=== PATIENT | female | born 1990 | race African-American/Black ===

== ENCOUNTER 2016-10-06 12:37 | Emergency (ER) | payer OTHER ==
[~2016-10-06] VITALS: Ht 165.1 cm; Wt 113.4 kg
[~2016-10-06 12:37] MED LIST: NAPR500T PO; OXYC-323 PO; no home meds
[2016-10-06 13:30] LABS: BILIRUBIN,URINE NEGATIVE (NEG); GLUCOSE,URINE NEGATIVE (NEG); NITRITE,URINE NEGATIVE (NEG); PH,URINE 6.5; PROTEIN,URINE NEGATIVE (NEG-TRACE); UROBILINOGEN,URINE 0.2 mg/dL (0.2 mg/dL)
[2016-10-06] MEDS ORDERED: ACETAMINOPHEN 500 MG TABLET PO ONE (13:30)
[2016-10-06 13:48] LABS: BACTERIA,URINE 0 /HPF (0-FEW); RBC,URINE >40 /HPF (0-2); SQUAMOUS EPITHELIAL CELL,UR FEW /LPF; WBC,URINE 0 /HPF (0-4)
[2016-10-06 13:54] LABS: BASO % 1 % (0-3); EOS % 2 % (0-3); HEMATOCRIT 39.6 % (36.0-47.0); HEMOGLOBIN 12.5 g/dL (12.0-15.5); LYMPH # 3.3 x10^3/uL (1.0-4.8); LYMPH % 32 % (24-48); MEAN CORPUSCULAR HEMOGLOBIN 24 pg (25-35); MEAN CORPUSCULAR HGB CONC 32 g/dL (31-37); MEAN CORPUSCULAR VOLUME 77 fL (79-100); MONO % 7 % (0-9); NEUT % 59 % (31-73); PLATELET COUNT 294 x10^3/uL (140-400); RED BLOOD COUNT 5.17 x10^6/uL (3.50-5.40); RED CELL DISTRIBUTION WIDTH 15.3 % (11.5-14.5); WHITE BLOOD COUNT 10.5 x10^3/uL (4.0-11.0)
[2016-10-06 13:58] LABS: CALCIUM 8.8 mg/dL (8.5-10.1); CREATININE 0.8 mg/dL (0.6-1.0); GFR 105.8; POTASSIUM 3.8 mmol/L (3.5-5.1)
--- NOTE | 2016-10-06 15:37 | RAD ---
Early OB ultrasound History: Vaginal bleeding. Technique: Real-time grayscale sonographic images of the gravid uterus were performed transabdominally and transvaginally. Transabdominal imaging was performed to evaluate optimally the uterine fundus. Endovaginal imaging was performed to evaluate optimally the endometrial canal and to increase sensitivity for detection of intrauterine . Comparison: None. Findings: Transabdominal imaging: Uterus measures 9.5 cm in length. No intrauterine is identified. Ovaries are not seen. No adnexal masses are identified. Endovaginal imaging: No intrauterine is identified. Endometrial thickness is 8 mm. Right ovary measures 3.5 x 2.3 x 1.7 cm. Left ovary measures 1.5 x 3.1 x 2.4 cm. Both ovaries demonstrate normal vascular flow upon Doppler interrogation and are without evidence of torsion. No adnexal masses are seen. No free hemorrhage is seen in the pelvis. Impression: 1. No intrauterine is identified. No adnexal masses are seen. Statistically, most likely etiology is a very early intrauterine . As no definitive intrauterine is identified, ectopic cannot be entirely excluded. Serial beta-hCG levels and pelvic ultrasound could be performed as clinically indicated.
[2016-10-06 15:45] VITALS: BP 125/69
[2016-10-06] MEDS ORDERED: METR500T PO (16:05)
[2016-10-06] MEDS ORDERED: HYDR-971 PO (16:05)
--- NOTE | 2016-10-06 16:05 | PHYS DOC ---
Past Medical History Past Medical History: Other Additional Past Medical Histor: Gestational DM, morbid obesity, eczema, Past Surgical History: Additional Information: 1 black and mild cigar occasionally Alcohol Use: None Drug Use: None Adult General Chief Complaint Chief Complaint: VAGINAL BLEEDING HPI HPI Patient is a 26 year old female who presents with vaginal bleeding in . She is at 6w2d by dates, LMP 08/24. The patient states she had onset of bleeding last evening, just spotting at that time, this morning woke up "sitting in a puddle of blood." Has not used any feminine pads. She reports cramping lower abdominal pain. Denies fevers/chills, nausea/ vomiting, dysuria, vaginal discharge. Reports she has been seen in the OB clinic by Dr. Mills, had US showing IUP last week. Review of Systems Review of Systems Constitutional: Denies fever or chills HENT: Denies nasal congestion or sore throat Respiratory: Denies cough or shortness of breath Cardiovascular: Denies chest pain or edema GI: Reports abdominal pain, denies nausea, vomiting, or diarrhea : Denies dysuria or hematuria, reports vaginal bleeding. Musculoskeletal: Denies back pain or joint pain Integument: Denies rash or skin lesions Neurologic: Denies headache Current Medications Current Medications Current Medications Medications (Trade) Dose Ordered Sig/Roc Start Time Stop Time Status Last Admin Dose Admin Acetaminophen (Tylenol) 500 mg 1X ONCE 10/06/16 13:30 10/06/16 13:31 DC 10/06/16 13:36 500 MG Allergies Allergies Allergies Coded Allergies Type Severity Reaction Last Updated Verified No Known Allergies Allergy Unknown 09/09/15 Yes Physical Exam Physical Exam Constitutional: Obese, no acute distress, non-toxic appearance. HENT: Normocephalic, atraumatic, bilateral external ears normal, oropharynx moist, nose normal. Eyes: conjunctiva normal, no discharge. Neck: supple, no stridor. Cardiovascular: RRR, no murmurs, no edema. Lungs & Thorax: LCTAB, no wheezing, no respiratory distress. Abdomen: soft, generalized lower abdominal pain without rebound or guarding, nondistended. : normal appearing female external genitalia, normal appearing cervix with closed os, no CMT/adnexal tenderness Skin: Warm, dry, no erythema, no rash. Back: No CVA tenderness. Extremities: No tenderness, no edema. Neurologic: Alert and oriented X 3 Current Patient Data Vital Signs Vital Signs Date Time Temp Pulse Resp B/P Pulse Ox O2 Delivery O2 Flow Rate FiO2 10/06/16 15:45 87 18 125/69 99 Room Air 10/06/16 12:53 99.0 99.0 Lab Values Laboratory Tests Test 10/06/16 13:03 10/06/16 13:35 Urine Collection Type Unknown Urine Color Yellow Urine Clarity Clear Urine pH 6.5 Urine Specific Brooks 1.025 Urine Protein Negativemg/dL (NEG-TRACE) Urine Glucose (UA) Negativemg/dL (NEG) Urine Ketones (Stick) Negativemg/dL (NEG) Urine Blood Large (NEG) Urine Nitrite Negative (NEG) Urine Bilirubin Negative (NEG) Urine Urobilinogen Dipstick 0.2mg/dL (0.2 mg/dL) Urine Leukocyte Esterase Trace (NEG) Urine RBC >40/HPF (0-2) Urine WBC 0/HPF (0-4) Urine Squamous Epithelial Cells Few/LPF Urine Bacteria 0/HPF (0-FEW) Urine Mucus Marked/LPF White Blood Count 10.5x10^3/uL (4.0-11.0) Red Blood Count 5.17x10^6/uL (3.50-5.40) Hemoglobin 12.5g/dL (12.0-15.5) Hematocrit 39.6% (36.0-47.0) Mean Corpuscular Volume 77fL (79-100) L Mean Corpuscular Hemoglobin 24pg (25-35) L Mean Corpuscular Hemoglobin Concent 32g/dL (31-37) Red Cell Distribution Width 15.3% (11.5-14.5) H Platelet Count 294x10^3/uL (140-400) Neutrophils (%) (Auto) 59% (31-73) Lymphocytes (%) (Auto) 32% (24-48) Monocytes (%) (Auto) 7% (0-9) Eosinophils (%) (Auto) 2% (0-3) Basophils (%) (Auto) 1% (0-3) Neutrophils # (Auto) 6.2x10^3uL (1.8-7.7) Lymphocytes # (Auto) 3.3x10^3/uL (1.0-4.8) Monocytes # (Auto) 0.7x10^3/uL (0.0-1.1) Eosinophils # (Auto) 0.2x10^3/uL (0.0-0.7) Basophils # (Auto) 0.0x10^3/uL (0.0-0.2) Maternal Serum HCG Beta Subunit 234mIU/mL (0-6) H Sodium Level 141mmol/L (136-145) Potassium Level 3.8mmol/L (3.5-5.1) Chloride Level 105mmol/L (98-107) Carbon Dioxide Level 29mmol/L (21-32) Anion Gap 7 (6-14) Blood Urea Nitrogen 15mg/dL (7-20) Creatinine 0.8mg/dL (0.6-1.0) Estimated GFR (Cockcroft-Gault) 105.8 Glucose Level 94mg/dL (70-99) Calcium Level 8.8mg/dL (8.5-10.1) Laboratory Tests 10/06/16 13:35 Laboratory Tests 10/06/16 13:35 Microbiology 10/06/16 Wet Prep - Final, Complete EKG EKG [] Radiology/Procedures Radiology/Procedures PROCEDURE: OB <14 WKS W/TV Early OB ultrasound History: Vaginal bleeding. Technique: Real-time grayscale sonographic images of the gravid uterus were performed transabdominally and transvaginally. Transabdominal imaging was performed to evaluate optimally the uterine fundus. Endovaginal imaging was performed to evaluate optimally the endometrial canal and to increase sensitivity for detection of intrauterine . Comparison: None. Findings: Transabdominal imaging: Uterus measures 9.5 cm in length. No intrauterine is identified. Ovaries are not seen. No adnexal masses are identified. Endovaginal imaging: No intrauterine is identified. Endometrial thickness is 8 mm. Right ovary measures 3.5 x 2.3 x 1.7 cm. Left ovary measures 1.5 x 3.1 x 2.4 cm. Both ovaries demonstrate normal vascular flow upon Doppler interrogation and are without evidence of torsion. No adnexal masses are seen. No free hemorrhage is seen in the pelvis. Impression: 1. No intrauterine is identified. No adnexal masses are seen. Statistically, most likely etiology is a very early intrauterine . As no definitive intrauterine is identified, ectopic cannot be entirely excluded. Serial beta-hCG levels and pelvic ultrasound could be performed as clinically indicated. DICTATED and SIGNED BY: UBALDO LONGORIA MD DATE: 10/06/16 1532[] Course & Med Decision Making Course & Med Decision Making Pertinent Labs and Imaging studies reviewed. (See chart for details) The patient presents with vaginal bleeding in early . Hemodynamically stable, not tachycardic or hypotensive. Minimal tenderness on exam. Beta hCG is 230, patient states last week in clinic it was 500. Ultrasound experienced some technical delays in getting the study to the radiologist, the patient was frustrated with the weight but ultimately was able to provide results. No evidence of IUP, no conclusive evidence of ectopic . Given her history of downtrending beta hCG strongly suspect spontaneous , but unable at this time to rule out possibility of ectopic . Patient has an appointment tomorrow with Dr. Mills in the OB clinic. Strongly encouraged her to keep this appointment for further evaluation and repeat labs/ultrasound. She understands importance of follow-up. Gave prescription for Flagyl for bacterial vaginosis as well as Denison as she states that her pain is severe and not controlled with Tylenol. Return to the emergency department for high fever, severe pain, uncontrolled vomiting, heavy bleeding requiring use of greater than 1 pad per hour, any otherwise worsening condition. Discharged home in stable condition. [] Dragon Disclaimer Dragon Disclaimer This electronic medical record was generated, in whole or in part, using a voice recognition dictation system. Departure Departure Impression: Primary Impression: Vaginal bleeding in Additional Impression: Bacterial vaginosis Disposition: 01 HOME, SELF-CARE Condition: STABLE Referrals: NO PCP (PCP) ANH MILLS MD Patient Instructions: Bacterial Vaginosis, [id number], Vaginal Bleeding During , [id number] Additional Instructions: You were seen in the emergency department today for vaginal bleeding in . The ultrasound did not show a baby in your uterus. The beta hCG was 234. It is likely that this is a miscarriage. Today we can't say for sure that you aren't having a tubal (ectopic) . It is very important to follow- up with Dr. Mills as scheduled tomorrow in the clinic. Take Flagyl for bacterial vaginosis and Denison for severe pain. No drinking alcohol or driving while taking Denison. Return to the emergency department for severe pain, uncontrolled vomiting, heavy bleeding requiring use of more than 1 pad per hour, any otherwise worsening condition. Scripts Hydrocodone/Apap 5-325 (Denison 5-325 Tablet)1 Each Tablet1 Tab PO PRN Q6HRS PRN PAIN #10 TAB Prov:DELMI WOOD MD 10/06/16 Metronidazole (Flagyl)500 Mg Tablet1 Tab PO BID #14 TAB Prov:DELMI WOOD MD 10/06/16 Problem Qualifiers DELMI WOOD MD Oct 06, 2016 16:05
--- NOTE | 2016-10-08 16:34 | VNOTE ---
CALL BACK NOTE CALL BACK Microbiology 10/06/16 Wet Prep - Final, Complete 10/06/16 Urine Culture - Final, Complete 10/06/16 Urine Culture Result 1 (HELEN) - Final, Complete Patient was positive for chlamydia, called patient spoke to her, she states she was seen at a different facility today and tested positive for Trichomonas. She states she was given some medication at the hospital she was seen, but she is not sure if she was treated for chlamydia. Called in a prescription for azithromycin for her at [facility] on [facility] CLARK OLIVA APRN Oct 08, 2016 16:34
== END 2016-10-06 16:15 | disposition home or self-care (01) ==
LOC: ER 12:37
DX: O46.91 Antepartum hemorrhage, unspecified, first trimester (principal); R10.30 Lower abdominal pain, unspecified; O23.591 Infection of other part of genital tract in pregnancy, first trimester; N76.0 Acute vaginitis; B96.89 Other specified bacterial agents as the cause of diseases classified elsewhere; Z3A.01 Less than 8 weeks gestation of pregnancy; O99.331 Smoking (tobacco) complicating pregnancy, first trimester; F17.210 Nicotine dependence, cigarettes, uncomplicated; O99.211 Obesity complicating pregnancy, first trimester; E66.01 Morbid (severe) obesity due to excess calories; Z68.41 Body mass index [BMI] 40.0-44.9, adult
CPT/HCPCS: 36415; 76801; 76817; 80048; 81001; 84702; 85027; 86850; 86900; 86901; 87086; 87491; 87591; 99285; Q0111

== ENCOUNTER 2016-10-26 13:25 | Emergency (ER) | payer OTHER ==
[~2016-10-26 13:25] MED LIST changes: +HYDR-971 PO; +METR500T PO
--- NOTE | 2016-10-26 14:16 | ED.ADGEN ---
Past Medical History Past Medical History: Other Additional Past Medical Histor: Gestational DM, morbid obesity, eczema, Past Surgical History: Alcohol Use: None Drug Use: None Physician Documentation Physician Documentation I signed up to see this patient when she was in the emergency department. The patient was not present in her room. I was told by staff that the patient mentioned that she was "going out to her car to charge her cell phone." The patient did not return to the emergency department. Patient did not receive a provider evaluation and no treatments were rendered while in the emergency department. JAZZY FORBES MD October 26, 2016 14:16
== END 2016-10-26 14:12 | disposition left against medical advice (07) ==
LOC: ER 13:36
DX: R10.9 Unspecified abdominal pain (principal); E66.01 Morbid (severe) obesity due to excess calories; Z53.21 Procedure and treatment not carried out due to patient leaving prior to being seen by health care provider

== ENCOUNTER 2017-09-28 14:38 | Emergency (ER) | payer SELFPAY, OTHER | END 2017-09-28 15:31 | disposition home or self-care (01) | LOC: ER 14:38 | DX: K02.9 Dental caries, unspecified (principal); K08.89 Other specified disorders of teeth and supporting structures; Z76.0 Encounter for issue of repeat prescription; F17.200 Nicotine dependence, unspecified, uncomplicated | CPT/HCPCS: 99283 ==

== ENCOUNTER 2017-10-22 04:01 | Emergency (ER) | payer SELFPAY ==
[2017-10-22 04:21] LABS: URINE HCG POC HCG NEGATIVE (Negative)
[2017-10-22] MEDS ORDERED: 0.9 % SODIUM CHLORIDE 10 ML DISP.SYRIN. IV (04:30)
[2017-10-22 04:35] LABS: BILIRUBIN,URINE NEGATIVE (NEG); CLARITY,URINE CLEAR; COLOR,URINE YELLOW; GLUCOSE,URINE NEGATIVE (NEG); NITRITE,URINE NEGATIVE (NEG); PROTEIN,URINE NEGATIVE (NEG-TRACE); UROBILINOGEN,URINE 0.2 mg/dL (0.2 mg/dL)
[2017-10-22 04:38] LABS: ADD MAN DIFF? NO
[2017-10-22] MEDS: IV NORMAL SALINE 1000ML BAG 1,000 ML IV (04:41)
[2017-10-22] MEDS: ONDANSETRON PF 4 MG/2 ML VIAL. IV (04:41)
[2017-10-22 04:44] LABS: BASO # 0.1 x10^3/uL (0.0-0.2); BASO % 1 % (0-3); EOS # 0.2 x10^3/uL (0.0-0.7); EOS % 1 % (0-3); HEMATOCRIT 39.3 % (36.0-47.0); HEMOGLOBIN 12.7 g/dL (12.0-15.5); LYMPH # 3.9 x10^3/uL (1.0-4.8); LYMPH % 32 % (24-48); MEAN CORPUSCULAR HEMOGLOBIN 25 pg (25-35); MEAN CORPUSCULAR HGB CONC 32 g/dL (31-37); MEAN CORPUSCULAR VOLUME 79 fL (79-100); MONO # 0.9 x10^3/uL (0.0-1.1); MONO % 8 % (0-9); NEUT % 58 % (31-73); PLATELET COUNT 277 x10^3/uL (140-400); RED BLOOD COUNT 5.01 x10^6/uL (3.50-5.40); RED CELL DISTRIBUTION WIDTH 14.3 % (11.5-14.5)
[2017-10-22] MEDS ORDERED: CONTRAST GIVEN MC (04:45)
[2017-10-22 04:50] LABS: BACTERIA,URINE 0 /HPF (0-FEW); SQUAMOUS EPITHELIAL CELL,UR FEW /LPF; WBC,URINE RARE /HPF (0-4)
[2017-10-22 05:38] LABS: ANION GAP 7 (6-14); BLOOD UREA NITROGEN 18 mg/dL (7-20); CALCIUM 8.7 mg/dL (8.5-10.1); CARBON DIOXIDE 29 mmol/L (21-32); CHLORIDE 107 mmol/L (98-107); CREATININE 0.8 mg/dL (0.6-1.0); GFR 104.9; GLUCOSE 96 mg/dL (70-99); POTASSIUM 3.9 mmol/L (3.5-5.1); SODIUM 143 mmol/L (136-145)
[2017-10-22 05:41] LABS: ALBUMIN 3.2 g/dL (3.4-5.0); ALK PHOS 66 U/L (46-116); ALT (SGPT) 29 U/L (14-59); AST (SGOT) 20 U/L (15-37); DIRECT BILIRUBIN 0.1 mg/dL (0.0-0.2); LIPASE 522 U/L (73-393); TOTAL BILIRUBIN 0.2 mg/dL (0.2-1.0); TOTAL PROTEIN 7.2 g/dL (6.4-8.2)
[2017-10-22] MEDS: IOHEXOL 300 MG/ML 100ML VIAL. IV (06:00)
== END 2017-10-22 07:27 | disposition home or self-care (01) ==
LOC: ER 04:01
DX: R10.84 Generalized abdominal pain (principal); R11.2 Nausea with vomiting, unspecified; R19.7 Diarrhea, unspecified; E66.01 Morbid (severe) obesity due to excess calories; Z68.41 Body mass index [BMI] 40.0-44.9, adult
CPT/HCPCS: 36415; 74177; 80048; 80076; 81001; 81025; 83690; 85025; 96361; 96374; 99285-25; J2405; J7030; Q9967

== ENCOUNTER 2018-01-30 01:07 | Emergency (ER) | payer SELFPAY ==
[~2018-01-30] VITALS: Ht 162.6 cm; Wt 124.7 kg
[~2018-01-30 01:07] MED LIST changes: +AMOX500C PO; +IBUP-1060 PO; +NAPR-683 PO; -NAPR500T PO; +ONDA4TAB7 PO; +TRIA15CR TP
[2018-01-30 02:12] VITALS: BP 117/74
[2018-01-30] MEDS ORDERED: ORPH100T PO (02:51)
[2018-01-30] MEDS ORDERED: BUTA1TAB23 PO (02:51)
[2018-01-30] MEDS ORDERED: ONDA4TAB12 PO (02:51)
--- NOTE | 2018-01-30 02:51 | PHYS DOC ---
Past Medical History Past Medical History: No Pertinent History Additional Past Medical Histor: Gestational DM, morbid obesity, eczema, Past Surgical History: No Surgical History Alcohol Use: Occasionally Drug Use: None Adult General Chief Complaint Chief Complaint: MULTIPLE COMPLAINTS HPI HPI Patient is a 27 year old [f__sex] who presents with [] Review of Systems Review of Systems Constitutional: Denies fever or chills [] Eyes: Denies change in visual acuity, redness, or eye pain [] HENT: Denies nasal congestion or sore throat [] Respiratory: Denies cough or shortness of breath [] Cardiovascular: No additional information not addressed in HPI [] GI: Denies abdominal pain, nausea, vomiting, bloody stools or diarrhea [] : Denies dysuria or hematuria [] Musculoskeletal: Denies back pain or joint pain [] Integument: Denies rash or skin lesions [] Neurologic: Denies headache, focal weakness or sensory changes [] Endocrine: Denies polyuria or polydipsia [] All other systems were reviewed and found to be within normal limits, except as documented in this note. Current Medications Current Medications Current Medications Medications (Trade) Dose Ordered Sig/Roc Start Time Stop Time Status Last Admin Dose Admin Acetaminophen/ Butalbital/ Caffeine (Fioricet) 1 tab 1X ONCE 01/30/18 03:00 01/30/18 03:01 Dexamethasone (Decadron) 10 mg 1X ONCE 01/30/18 03:00 01/30/18 03:01 Ondansetron HCl (Zofran Odt) 4 mg 1X ONCE 01/30/18 03:00 01/30/18 03:01 Allergies Allergies Allergies Coded Allergies Type Severity Reaction Last Updated Verified No Known Allergies Allergy Unknown 09/09/15 Yes Physical Exam Physical Exam Constitutional: Well developed, well nourished, no acute distress, non-toxic appearance. [] HENT: Normocephalic, atraumatic, bilateral external ears normal, oropharynx moist, no oral exudates, nose normal. [] Eyes: PERRLA, EOMI, conjunctiva normal, no discharge. [] Neck: Normal range of motion, no tenderness, supple, no stridor. [] Cardiovascular:Heart rate regular rhythm, no murmur [] Lungs & Thorax: Bilateral breath sounds clear to auscultation [] Abdomen: Bowel sounds normal, soft, no tenderness, no masses, no pulsatile masses. [] Skin: Warm, dry, no erythema, no rash. [] Back: No tenderness, no CVA tenderness. [] Extremities: No tenderness, no cyanosis, no clubbing, ROM intact, no edema. [] Neurologic: Alert and oriented X 3, normal motor function, normal sensory function, no focal deficits noted. [] Psychologic: Affect normal, judgement normal, mood normal. [] Current Patient Data Vital Signs Vital Signs Date Time Temp Pulse Resp B/P (MAP) Pulse Ox O2 Delivery O2 Flow Rate FiO2 01/30/18 02:12 97.8 73 18 117/74 (88) 99 Room Air 97.8 EKG EKG [] Radiology/Procedures Radiology/Procedures CXR 2 view (Preliminary interpretation by ED physician): No acute process noted Course & Med Decision Making Course & Med Decision Making Pertinent Labs and Imaging studies reviewed. (See chart for details) [] Dragon Disclaimer Dragon Disclaimer This electronic medical record was generated, in whole or in part, using a voice recognition dictation system. Departure Departure Impression: Primary Impression: Headache Additional Impressions: Nausea Back pain Rash Disposition: HOME, SELF-CARE Condition: STABLE Referrals: NO PCP (PCP) Patient Instructions: Chest Pain (Nonspecific), Mmnf-ry-[id number], Headache, FAQs, Rash, Gixa-wd-Bxhn, Thoracic Strain, Tzzx-er-Ysvy Scripts Prednisone (PREDNISONE) 20 Mg Tablet 2 TAB PO DAILY, #8 TAB Start on Wednesday01/31/18 Prov: UBALDO CONLEY DO 01/30/18 Hydrocortisone (HYDROCORTISONE) 453.6 Gm Cream..g. 1 KELLY TP PRN BID for 5 Days, #30 GM Prov: UBALDO CONLEY DO 01/30/18 Orphenadrine Citrate (ORPHENADRINE CITRATE) 100 Mg Tablet.er 1 TAB PO BID PRN for MUSCLE SPASMS, #14 TAB 0 Refills Prov: UBALDO CONLEY DO 01/30/18 Butalb/Acetaminophen/Caffeine ([id number]-[id number] 50-325-40) 1 Each Tablet 1 EACH PO Q6HRS PRN for HEADACHE, #14 TAB Prov: UBALDO CONLEY DO 01/30/18 Ondansetron (ONDANSETRON ODT) 4 Mg Tab.rapdis 1 TAB PO PRN Q6-8HRS for VOMITING, #16 TAB Prov: UBALDO CONLEY DO 01/30/18 Problem Qualifiers Primary Impression: Headache Headache type: unspecified Headache chronicity pattern: acute headache Intractability: intractable Qualified Codes: R51 - Headache Additional Impressions: Back pain Back pain location: thoracic back pain Chronicity: acute Back pain laterality: bilateral Qualified Codes: M54.6 - Pain in thoracic spine UBALDO CONLEY DO Jan 30, 2018 02:51
[2018-01-30] MEDS ORDERED: ONDANSETRON ODT 4 MG TAB.RAPDIS. PO ONE (03:00)
[2018-01-30] MEDS ORDERED: BUTALB/APAP/CAFEIN 50/325/40MG TABLET. PO ONE (03:00)
[2018-01-30] MEDS ORDERED: DEXAMETHASONE 4 MG TABLET PO ONE (03:00)
[2018-01-30] MEDS ORDERED: HYDR453.3 TP (03:02)
[2018-01-30] MEDS ORDERED: PRED20TA PO (03:02)
--- NOTE | 2018-01-30 08:59 | RAD ---
Chest PA and lateral: Reason for examination: Congestion and cough. Comparison is made to previous study dated 02/19/2014. The heart size is normal. Mediastinum is unremarkable. Lung stokes are clear. No acute bony abnormalities are seen. Impression: No acute cardiopulmonary disease. Electronically signed by: Taylor Euceda MD (01/30/2018 8:55 AM) [facility]
== END 2018-01-30 03:11 | disposition home or self-care (01) ==
LOC: ER 01:07
DX: R51 Headache (principal); R11.0 Nausea; R21 Rash and other nonspecific skin eruption; M54.9 Dorsalgia, unspecified; E66.01 Morbid (severe) obesity due to excess calories; Z68.42 Body mass index [BMI] 45.0-49.9, adult
CPT/HCPCS: 71046; 99284; J8540; Q0162

== ENCOUNTER 2018-02-26 15:25 | Emergency (ER) | payer OTHER ==
[~2018-02-26] VITALS: Ht 165.1 cm; Wt 113.4 kg
[2018-02-26 15:25] VITALS: BP 115/52
[~2018-02-26 15:25] MED LIST changes: +BUTA1TAB23 PO; +HYDR453.3 TP; +ONDA4TAB12 PO; +ORPH100T PO; +PRED20TA PO
[2018-02-26] MEDS ORDERED: HYDROcodone/APAP 5/325MG 1 TAB TABLET PO ONE (15:45)
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
== END 2018-02-26 16:39 | disposition home or self-care (01) ==
LOC: ER 15:25
DX: S60.212A Contusion of left wrist, initial encounter (principal); S40.022A Contusion of left upper arm, initial encounter; M54.2 Cervicalgia; Y08.89XA Assault by other specified means, initial encounter; Y93.89 Activity, other specified; Y92.89 Other specified places as the place of occurrence of the external cause; Y99.8 Other external cause status
CPT/HCPCS: 73090; 73110; 99284

== ENCOUNTER 2019-01-17 22:54 | Emergency (ER) | payer OTHER ==
[~2019-01-17] VITALS: Ht 165.1 cm; Wt 133.4 kg
[~2019-01-17 22:54] MED LIST changes: +HYDR-3164 PO; -HYDR-971 PO; -OXYC-323 PO; +OXYC1TAB15 PO
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
[2019-01-18] MEDS ORDERED: ORPHENADRINE CITRATE 60 MG/2 ML VIAL. IM ONE (00:30)
[2019-01-18] MEDS ORDERED: NAPROXEN 500 MG TABLET PO ONE (00:30)
[2019-01-18] MEDS ORDERED: KETOROLAC 30 MG/ML VIAL. IM ONE (00:30)
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
[2019-01-18] MEDS ORDERED: CYCL10TA2 PO (01:50)
[2019-01-18 02:15] VITALS: BP 128/70
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
== END 2019-01-18 02:15 | disposition home or self-care (01) ==
LOC: ER 22:54
DX: S50.811A Abrasion of right forearm, initial encounter (principal); S60.811A Abrasion of right wrist, initial encounter; S09.8XXA Other specified injuries of head, initial encounter; M54.2 Cervicalgia; M25.531 Pain in right wrist; M25.561 Pain in right knee; E66.01 Morbid (severe) obesity due to excess calories; Z68.42 Body mass index [BMI] 45.0-49.9, adult; Y04.8XXA Assault by other bodily force, initial encounter; Y93.89 Activity, other specified; Y92.89 Other specified places as the place of occurrence of the external cause; Y99.8 Other external cause status
CPT/HCPCS: 70450; 72125; 73110; 73562; 96372; 99284; J1885; J2360

== ENCOUNTER 2019-02-06 03:30 | Emergency (ER) | payer OTHER ==
[~2019-02-06] VITALS: Ht 157.5 cm; Wt 113.4 kg
[~2019-02-06 03:30] MED LIST changes: +CYCL10TA2 PO
[2019-02-06] MEDS: ONDANSETRON PF 4 MG/2 ML VIAL. IV ONE ×2 (04:00→04:24)
[2019-02-06] MEDS ORDERED: IV NORMAL SALINE 1000ML BAG 1,000 ML IV ONE (04:00)
[2019-02-06] MEDS ORDERED: KETOROLAC 15 MG/ML VIAL. IV ONE (04:00)
[2019-02-06] MEDS: FAMOTIDINE 20 MG/2 ML VIAL IVP ONE ×2 (04:00→04:23)
[2019-02-06 04:19] LABS: BASO # 0.1 x10^3/uL (0.0-0.2); BASO % 1 % (0-3); EOS # 0.2 x10^3/uL (0.0-0.7); EOS % 2 % (0-3); HEMATOCRIT 34.7 % (36.0-47.0); HEMOGLOBIN 11.1 g/dL (12.0-15.5); LYMPH # 3.4 x10^3/uL (1.0-4.8); LYMPH % 29 % (24-48); MEAN CORPUSCULAR HEMOGLOBIN 25 pg (25-35); MEAN CORPUSCULAR HGB CONC 32 g/dL (31-37); MEAN CORPUSCULAR VOLUME 77 fL (79-100); MONO # 0.6 x10^3/uL (0.0-1.1); MONO % 5 % (0-9); NEUT # 7.4 x10^3/uL (1.8-7.7); NEUT % 64 % (31-73); PLATELET COUNT 359 x10^3/uL (140-400); RED BLOOD COUNT 4.52 x10^6/uL (3.50-5.40); RED CELL DISTRIBUTION WIDTH 14.9 % (11.5-14.5); WHITE BLOOD COUNT 11.6 x10^3/uL (4.0-11.0)
[2019-02-06 04:27] LABS: CALCIUM 8.5 mg/dL (8.5-10.1); CREATININE 0.9 mg/dL (0.6-1.0); GFR 90.9; POTASSIUM 3.9 mmol/L (3.5-5.1)
[2019-02-06 04:33] LABS: ALBUMIN/GLOBULIN RATIO 0.7 (1.0-1.7); MAGNESIUM 1.7 mg/dL (1.8-2.4); TOTAL BILIRUBIN 0.1 mg/dL (0.2-1.0); TOTAL PROTEIN 7.6 g/dL (6.4-8.2)
[2019-02-06 05:09] LABS: BILIRUBIN,URINE NEGATIVE (NEG); CLARITY,URINE CLOUDY; COLOR,URINE YELLOW; NITRITE,URINE NEGATIVE (NEG); PROTEIN,URINE NEGATIVE (NEG-TRACE); UROBILINOGEN,URINE 0.2 mg/dL (0.2 mg/dL)
[2019-02-06 05:15] LABS: BACTERIA,URINE MANY /HPF (0-FEW); RBC,URINE OCC /HPF (0-2); SQUAMOUS EPITHELIAL CELL,UR MANY /LPF
[2019-02-06] MEDS ORDERED: cefTRIAXone IV Push 1 GM VIAL. IVP ONE (05:45)
[2019-02-06] MEDS ORDERED: CEPH-264 PO (06:40)
[2019-02-06] MEDS ORDERED: FAMO-63 PO (06:40)
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
--- NOTE | 2019-02-06 06:46 | RAD ---
CT abdomen and pelvis without contrast: Reason for examination: Right lower quadrant abdominal pain. Helical images were obtained through the abdomen and pelvis with no contrast administered. Reconstruction was performed in sagittal and coronal planes. Exposure: One or more of the following individualized dose reduction techniques were utilized for this examination: 1. Automated exposure control 2. Adjustment of the mA and/or kV according to patient size 3. Use of iterative reconstruction technique. The lung bases show some dependent atelectasis. The heart size is normal with no pericardial effusion. No abnormality seen at the liver, spleen, adrenal glands or pancreas. Gallbladder shows cholelithiasis. Kidneys show no renal masses, renal calculi, hydronephrosis or evidence of obstructive uropathy. No abnormality seen at the appendix. There is no evidence of diverticulosis or diverticulitis. The small intestinal tract shows no abnormal dilatation or wall thickening or bowel obstruction. No abnormality seen in the stomach. The abdominal aorta and inferior vena cava show no acute abnormalities. The bladder is not optimally distended. No abnormality seen at the uterus or ovaries. No free fluid or free air is seen in the abdomen or pelvis. IMPRESSION: Cholelithiasis. No abnormality seen at the appendix. No gross adnexal masses seen. No other focal abnormality seen in the abdomen or pelvis. Electronically signed by: Taylor Euceda MD (02/06/2019 6:43 AM) [facility]
[2019-02-06] MEDS ORDERED: ONDA4TAB12 PO (06:50)
[2019-02-06] MEDS ORDERED: HYDR-3164 PO (06:50)
[2019-02-06 06:53] VITALS: BP 130/78
== END 2019-02-06 07:03 | disposition home or self-care (01) ==
LOC: ER 03:30
DX: N39.0 Urinary tract infection, site not specified (principal); K80.20 Calculus of gallbladder without cholecystitis without obstruction; R10.11 Right upper quadrant pain; E66.01 Morbid (severe) obesity due to excess calories; Z68.42 Body mass index [BMI] 45.0-49.9, adult
CPT/HCPCS: 36415; 74176; 80053; 81001; 81025; 83690; 83735; 85025; 87086; 96374; 96375; 99285; J0696; J1885; J2405; J3490

== ENCOUNTER 2019-05-02 05:03 | Emergency (ER) | payer OTHER ==
[~2019-05-02] VITALS: Ht 165.1 cm; Wt 126.1 kg
[~2019-05-02 05:03] MED LIST changes: +CEPH-264 PO; +FAMO-63 PO
[2019-05-02] MEDS ORDERED: cloNIDine HCL 0.1 MG TABLET PO ONE (05:30)
[2019-05-02 05:36] LABS: BASO % 0 % (0-3); EOS # 0.2 x10^3/uL (0.0-0.7); EOS % 2 % (0-3); HEMATOCRIT 37.5 % (36.0-47.0); HEMOGLOBIN 12.1 g/dL (12.0-15.5); LYMPH # 3.5 x10^3/uL (1.0-4.8); LYMPH % 32 % (24-48); MEAN CORPUSCULAR HEMOGLOBIN 25 pg (25-35); MEAN CORPUSCULAR HGB CONC 32 g/dL (31-37); MEAN CORPUSCULAR VOLUME 76 fL (79-100); MONO # 0.7 x10^3/uL (0.0-1.1); MONO % 7 % (0-9); NEUT # 6.4 x10^3/uL (1.8-7.7); NEUT % 59 % (31-73); PLATELET COUNT 313 x10^3/uL (140-400); RED BLOOD COUNT 4.93 x10^6/uL (3.50-5.40); RED CELL DISTRIBUTION WIDTH 14.7 % (11.5-14.5); WHITE BLOOD COUNT 10.9 x10^3/uL (4.0-11.0)
[2019-05-02 05:42] LABS: CALCIUM 8.8 mg/dL (8.5-10.1); GFR 79.9; POTASSIUM 4.1 mmol/L (3.5-5.1)
[2019-05-02] MEDS ORDERED: MORPHINE SULFATE 4 MG/ML VIAL. IV ONE (05:45)
[2019-05-02] MEDS ORDERED: ONDANSETRON PF 4 MG/2 ML VIAL. IVP ONE (05:45)
--- NOTE | 2019-05-02 05:46 | PHYS DOC ---
Past Medical History Past Medical History: Anxiety, Other Additional Past Medical Histor: Gestational DM, morbid obesity, eczema, , GALL STONES (LISBETH CASTILLO DO) Past Surgical History: No Surgical History (LISBETH CASTILLO DO) Additional Information: SMOKES BLACK AND MILDS Alcohol Use: Occasionally Drug Use: None (LISBETH CASTILLO DO) Adult General Chief Complaint Chief Complaint: LOWER EXTREMITY SWELLING HPI HPI Patient is a 29 year old -[place] female presents with multiple medical complaints. Patient reports left leg pain tenderness and swelling for several days, bilateral mid back pain for several days. Denies trauma or repetitive strain injury. Patient was evaluated by local primary care physician 2 days ago and was noted to be hypertensive in the office. She is instructed to go to the emergency department for evaluation and rule out of DVT at that time. Patient states she had to work so was unable to come to the emergency department today. Patient denies chest pain palpitations, shortness of breath. Denies prior diagn osis of hypertension. [] (LISBETH CASTILLO DO) Review of Systems Review of Systems Constitutional: Denies fever or chills [] Eyes: Denies change in visual acuity, redness, or eye pain [] HENT: Denies nasal congestion or sore throat [] Respiratory: Denies cough or shortness of breath [] Cardiovascular: No additional information not addressed in HPI [] GI: Denies abdominal pain, nausea, vomiting, bloody stools or diarrhea [] : Denies dysuria or hematuria [] Musculoskeletal: Denies back pain or joint pain [] Integument: Denies rash or skin lesions [] Neurologic: Denies headache, focal weakness or sensory changes [] Endocrine: Denies polyuria or polydipsia [] All other systems were reviewed and found to be within normal limits, except as documented in this note. (LISBETH CASTILLO DO) Current Medications Current Medications Current Medications Medications (Trade) Dose Ordered Sig/Roc Start Time Stop Time Status Last Admin Dose Admin Aspirin (Vishal Aspirin) 325 mg 1X ONCE 05/02/19 07:00 05/02/19 07:01 DC 05/02/19 07:06 325 MG Clonidine HCl (Catapres) 0.2 mg 1X ONCE 05/02/19 05:30 05/02/19 06:45 DC Ketorolac Tromethamine (Toradol 15mg Vial) 15 mg 1X ONCE 05/02/19 07:00 05/02/19 07:01 DC 05/02/19 07:06 15 MG Morphine Sulfate (Morphine Sulfate) 4 mg 1X ONCE 05/02/19 05:45 05/02/19 05:46 DC 05/02/19 06:33 4 MG Ondansetron HCl (Zofran) 4 mg 1X ONCE 05/02/19 05:45 05/02/19 05:46 DC 05/02/19 06:32 4 MG (UBALDO CONLEY DO) Allergies Allergies Allergies Coded Allergies Type Severity Reaction Last Updated Verified No Known Allergies Allergy Unknown 09/09/15 Yes (UBALDO CONLEY DO) Physical Exam Physical Exam Constitutional: Well developed, well nourished, no acute distress, non-toxic appearance. [] HENT: Normocephalic, atraumatic, bilateral external ears normal, oropharynx moist, nose normal. [] Eyes: PERRLA, EOMI, conjunctiva normal, no discharge. [] Neck: Normal range of motion, no tenderness, supple, no stridor. [] Cardiovascular:Heart rate regular rhythm, no murmur [] Lungs & Thorax: Bilateral breath sounds clear to auscultation [] Abdomen: Bowel sounds normal, soft, no tenderness, obesity compromising evaluation.. [] Skin: Warm, dry, no erythema, no rash. [] Back: Diffuse mid low back pain/tenderness. [] Extremities: Left leg swelling tenderness positive Luis Alfredo signs.. [] Neurologic: Alert and oriented X 3, normal motor function, normal sensory function, no focal deficits noted. [] Psychologic: Affect normal, judgement normal, mood normal. [] (LISBETH CASTILLO DO) Physical Exam Constitutional: Well developed, well nourished, no acute distress, non-toxic appearance HENT: Normocephalic, atraumatic, oropharynx moist Eyes: Conjunctiva normal, no discharge Neck: Normal range of motion, no tenderness, supple Cardiovascular: Heart rate normal, regular rhythm Lungs & Thorax: Bilateral breath sounds clear to auscultation, no wheezing Abdomen: Soft, no tenderness Skin: Warm, dry, no erythema, no rash Back: Midline and paraspinal lumbar tenderness, no CVA tenderness Extremities:Left calf tenderness, ROM intact,trace edema bilaterally Neurologic: Alert and oriented X 3, normal motor function, normal sensory function, no focal deficits noted Psychologic: Affect normal, judgement normal (CONLEYUBALDO R DO) Current Patient Data Vital Signs Vital Signs Date Time Temp Pulse Resp B/P (MAP) Pulse Ox O2 Delivery O2 Flow Rate FiO2 05/02/19 07:15 120/85 (97) 05/02/19 06:33 16 97 Room Air 05/02/19 05:05 98.2 79 98.2 (CONLEYUBALDO ESTEVEZ R DO) Lab Values Laboratory Tests Test 05/02/19 05:20 White Blood Count 10.9 x10^3/uL (4.0-11.0) Red Blood Count 4.93 x10^6/uL (3.50-5.40) Hemoglobin 12.1 g/dL (12.0-15.5) Hematocrit 37.5 % (36.0-47.0) Mean Corpuscular Volume 76 fL (79-100) L Mean Corpuscular Hemoglobin 25 pg (25-35) Mean Corpuscular Hemoglobin Concent 32 g/dL (31-37) Red Cell Distribution Width 14.7 % (11.5-14.5) H Platelet Count 313 x10^3/uL (140-400) Neutrophils (%) (Auto) 59 % (31-73) Lymphocytes (%) (Auto) 32 % (24-48) Monocytes (%) (Auto) 7 % (0-9) Eosinophils (%) (Auto) 2 % (0-3) Basophils (%) (Auto) 0 % (0-3) Neutrophils # (Auto) 6.4 x10^3/uL (1.8-7.7) Lymphocytes # (Auto) 3.5 x10^3/uL (1.0-4.8) Monocytes # (Auto) 0.7 x10^3/uL (0.0-1.1) Eosinophils # (Auto) 0.2 x10^3/uL (0.0-0.7) Basophils # (Auto) 0.0 x10^3/uL (0.0-0.2) D-Dimer (Ella) 0.42 ug/mlFEU (0.00-0.50) Sodium Level 144 mmol/L (136-145) Potassium Level 4.1 mmol/L (3.5-5.1) Chloride Level 104 mmol/L (98-107) Carbon Dioxide Level 30 mmol/L (21-32) Anion Gap 10 (6-14) Blood Urea Nitrogen 16 mg/dL (7-20) Creatinine 1.0 mg/dL (0.6-1.0) Estimated GFR (Cockcroft-Gault) 79.9 BUN/Creatinine Ratio 16 (6-20) Glucose Level 104 mg/dL (70-99) H Calcium Level 8.8 mg/dL (8.5-10.1) Total Bilirubin 0.2 mg/dL (0.2-1.0) Aspartate Amino Transferase (AST) 60 U/L (15-37) H Alanine Aminotransferase (ALT) 31 U/L (14-59) Alkaline Phosphatase 82 U/L (46-116) Troponin I Quantitative < 0.017 ng/mL (0.000-0.055) JO-Aiq-O-Type Natriuretic Peptide 12 pg/mL (0-124) Total Protein 7.3 g/dL (6.4-8.2) Albumin 3.2 g/dL (3.4-5.0) L Albumin/Globulin Ratio 0.8 (1.0-1.7) L Triglycerides Level 36 mg/dL (0-150) Cholesterol Level 129 mg/dL (0-200) LDL Cholesterol, Calculated 85 mg/dL (0-100) VLDL Cholesterol, Calculated 7 mg/dL (0-40) Non-HDL Cholesterol Calculated 92 mg/dL (0-129) HDL Cholesterol 37 mg/dL (40-60) L Cholesterol/HDL Ratio 3.5 Thyroid Stimulating Hormone (TSH) 1.791 uIU/mL (0.358-3.74) Free Thyroxine 1.11 ng/dL (0.76-1.46) Free Triiodothyronine (T3) pg/mL 2.74 pg/mL (2.18-3.98) Serum Test, Qualitative Negative (NEG) Laboratory Tests 05/02/19 05:20 Laboratory Tests 05/02/19 05:20 (UBALDO CONLEY DO) EKG EKG [EKG: reviewed, NSR, acute ST-T wave changes] (LISBETH CASTILLO DO) Radiology/Procedures Radiology/Procedures [Left leg venous Doppler ultrasound:] (LISBETH CASTILLO DO) Radiology/Procedures PROCEDURE: CHEST AP ONLY Indication: Shortness of breath TECHNIQUE:Portable AP chest X-ray COMPARISON: None FINDINGS: Heart is normal in size. Lungs are clear. No pneumothorax or pleural effusion. Visualized bony thorax within normal limits. IMPRESSION: No acute pulmonary process. Electronically signed by: Roney Giron DO (05/02/2019 5:42 AM) [facility] PROCEDURE: VENOUS LOWER EXTREMITY LEFT Ultrasound venous Doppler INDICATION:Left calf pain TECHNIQUE: Grayscale, color Doppler and spectral waveform ultrasound images of the left lower extremity deep veins obtained. COMPARISON: None FINDINGS: The interrogated deep veins are compressible and demonstrate evidence of blood flow with normal respiratory variation and response to augmentation. Hypoechoic filling defect is seen in the proximal to mid lesser saphenous vein without blood flow and is noncompressible. IMPRESSION: No sonographic evidence of acute DVT of the lower extremity deep veins. Occluding Thrombus/thrombophlebitis in the proximal to mid lesser saphenous vein. Electronically signed by: Roney Giron DO (05/02/2019 6:32 AM) [place] [id number] (UBALDO CONLEY DO) Course & Med Decision Making Course & Med Decision Making Pertinent Labs and Imaging studies reviewed. (See chart for details) [Lab work and imaging studies pending. Blood pressure addressed. Care to be endorsed to oncoming ERP at 06:00] (ILSBETH CASTILLO DO) Course & Med Decision Making 0600- Sign out received from Dr. Castillo for patient pending imaging. reports left calf pain. Patient also recently seen by PCP and instructed to present to ED for evaluation of leg and requests to have "routine physical" labs obtained. Patient advised ED was equipped to check for emergent conditions and routine blood work including thyroid, hemoglobin A1C, and lipid panels were outpatient studies. Advised would order but result would be pending. Mammography is also inappropriate ED order and she would need to schedule with that department for outpatient appointment. XR lumbar spine without acute fracture/dislocation (again requested by her PCP). CXR stable. Other labs reviewed. Venous Doppler with sign of superficial thrombophlebitis. ASA and ketorolac provided. Patient stable for discharge with outpatient follow-up with PCP. Discussed fi ndings and plan with patient and family, who acknowledge understanding and agreement. (UBALDO CONLEY DO) Dragon Disclaimer Dragon Disclaimer This electronic medical record was generated, in whole or in part, using a voice recognition dictation system. (LISBETH CASTILLO DO) Departure Departure Impression: Primary Impression: Thrombophlebitis leg superficial Additional Impression: Lumbar pain Disposition: 01 HOME, SELF-CARE Condition: STABLE Referrals: NO PCP (PCP) Patient Instructions: Back Pain, Adult, [id number], Phlebitis, [id number] Additional Instructions: Please follow closely with your family physician for your lipid panel, thyroid testing, and hemoglobin A1C (these are not Emergent tests and typically are not ordered in the Emergency Department). They were run as a courtesy. WE ARE NOT ABLE TO PROVIDE MAMMOGRAM TESTING IN THE EMERGENCY DEPARTMENT. Please call your doctor to schedule this OUTPATIENT test. Scripts Orphenadrine Citrate (ORPHENADRINE CITRATE) 100 Mg Tablet.er 100 MG PO BID PRN for MUSCLE PAIN, #14 Prov: UBALDO CONLEY DO 05/02/19 Naproxen (NAPROXEN) 375 Mg Tablet 1 TAB PO TID for pain, #30 TAB 0 Refills with food Prov: UBALDO CONLEY DO 05/02/19 Aspirin (ASPIRIN) 325 Mg Tablet 1 TAB PO DAILY, #30 TAB Prov: UBALDO CONLEY DO 05/02/19 Problem Qualifiers Primary Impression: Thrombophlebitis leg superficial Laterality: left Qualified Codes: I80.02 - Phlebitis and thrombophlebitis of superficial vessels of left lower extremity LISBETH CASTILLO DO May 02, 2019 05:46 UBALDO CONLEY DO May 02, 2019 06:51
[2019-05-02 05:48] LABS: ALBUMIN 3.2 g/dL (3.4-5.0); ALBUMIN/GLOBULIN RATIO 0.8 (1.0-1.7); TOTAL BILIRUBIN 0.2 mg/dL (0.2-1.0); TOTAL PROTEIN 7.3 g/dL (6.4-8.2)
--- NOTE | 2019-05-02 06:35 | RAD ---
Ultrasound venous Doppler INDICATION:Left calf pain TECHNIQUE: Grayscale, color Doppler and spectral waveform ultrasound images of the left lower extremity deep veins obtained. COMPARISON: None FINDINGS: The interrogated deep veins are compressible and demonstrate evidence of blood flow with normal respiratory variation and response to augmentation. Hypoechoic filling defect is seen in the proximal to mid lesser saphenous vein without blood flow and is noncompressible. IMPRESSION: No sonographic evidence of acute DVT of the lower extremity deep veins. Occluding Thrombus/thrombophlebitis in the proximal to mid lesser saphenous vein. Electronically signed by: Roney Giron DO (05/02/2019 6:32 AM) [facility]
[2019-05-02] MEDS ORDERED: ASPI325T8 PO (06:51)
[2019-05-02] MEDS ORDERED: NAPR-695 PO (06:51)
[2019-05-02] MEDS ORDERED: KETOROLAC 15 MG/ML VIAL. IVP ONE (07:00)
[2019-05-02] MEDS ORDERED: ASPIRIN 325 MG TABLET PO ONE (07:00)
[2019-05-02 07:03] LABS: PREG TEST PT QUAL NEGATIVE (NEG)
--- NOTE | 2019-05-02 07:12 | EKG ---
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
[2019-05-02 07:15] VITALS: BP 120/85
[2019-05-02] MEDS ORDERED: ORPH100T PO (07:24)
[2019-05-02 07:28] LABS: CHOLESTEROL/HDL RATIO 3.5
[2019-05-02 08:05] LABS: FREE T4 1.11 ng/dL (0.76-1.46); THYROID STIM HORMONE (TSH) 1.791 uIU/mL (0.358-3.74)
--- NOTE | 2019-05-02 08:27 | RAD ---
3 views lumbar spine 05/02/2019 INDICATION: Low back pain COMPARISON STUDY: CT of the abdomen and pelvis without contrast February 06, 2019 FINDINGS: No evidence of acute fracture or alignment abnormality is identified. Vertebral body heights and disc spaces are maintained. No spondylolysis or spondylolisthesis is identified. No other acute osseous abnormality is seen. No acute soft tissue changes are appreciated. IMPRESSION: Normal radiographic appearance of the lumbar spine Electronically signed by: Deangelo Archer MD (05/02/2019 8:24 AM) [facility]
[2019-05-03 00:07] LABS: HEMOGLOBIN A1C 5.7 % (4.8-5.6)
== END 2019-05-02 07:48 | disposition home or self-care (01) ==
LOC: ER 05:03
DX: I80.02 Phlebitis and thrombophlebitis of superficial vessels of left lower extremity (principal); M54.5 Low back pain; M54.6 Pain in thoracic spine; E66.01 Morbid (severe) obesity due to excess calories; Z68.42 Body mass index [BMI] 45.0-49.9, adult
CPT/HCPCS: 36415; 71045; 72100; 80053; 80061; 83036; 83880; 84439; 84443; 84481; 84484; 84703; 85025; 85379; 93005; 93971; 96374; 96375; 99285; J1885; J2270; J2405

== ENCOUNTER 2019-06-18 23:10 | Emergency (ER) | payer MEDICAID, OTHER ==
[~2019-06-18] VITALS: Ht 162.6 cm; Wt 117.9 kg
[2019-06-18 23:10] VITALS: BP 134/67
[~2019-06-18 23:10] MED LIST changes: +ASPI325T8 PO; +NAPR-695 PO
--- NOTE | 2019-06-18 23:30 | PHYS DOC ---
Past Medical History Past Medical History: Anxiety, Other Additional Past Medical Histor: Gestational DM, morbid obesity, eczema, , GALL STONES Past Surgical History: No Surgical History Alcohol Use: Occasionally Drug Use: None Adult General Chief Complaint Chief Complaint: LOWER EXT PAIN HPI HPI Patient is a 29 year old female who presents to the ED today complaining of 10 out of 10 left leg pain specifically slightly above the knee and slightly below the knee that began a couple minutes prior to coming to the ED after she stepped in uneven surface in a basement that is being remodeled. Patient states her leg twisted. Patient reports falling. Denies any loss of consciousness, denies hitting her head on the ground. Patient describes the pain as an spasms with rick horse feeling pain is constant worse on weight-bearing. EMS reports patient's house was full of dog feces and drugs. Review of Systems Review of Systems Constitutional: Denies fever or chills [] Eyes: Denies change in visual acuity, redness, or eye pain [] HENT: Denies nasal congestion or sore throat [] Respiratory: Denies cough or shortness of breath [] Cardiovascular: No additional information not addressed in HPI [] GI: Denies abdominal pain, nausea, vomiting, bloody stools or diarrhea [] : Denies dysuria or hematuria [] Musculoskeletal: Reports left leg pain Integument: Denies rash or skin lesions [] Neurologic: Denies headache, focal weakness or sensory changes [] All other systems were reviewed and found to be within normal limits, except as documented in this note. Current Medications Current Medications Current Medications Medications (Trade) Dose Ordered Sig/Roc Start Time Stop Time Status Last Admin Dose Admin Acetaminophen/ Hydrocodone Bitart (Lortab 5/325) 2 tab 1X ONCE 06/19/19 00:30 06/19/19 00:31 Naproxen (Naprosyn) 500 mg 1X ONCE 06/19/19 00:30 06/19/19 00:31 Allergies Allergies Allergies Coded Allergies Type Severity Reaction Last Updated Verified No Known Allergies Allergy Unknown 09/09/15 Yes Physical Exam Physical Exam Constitutional: Well developed, well nourished, no acute distress, non-toxic appearance. [] HENT: Normocephalic, atraumatic, bilateral external ears normal, oropharynx moist, no oral exudates, nose normal. [] Eyes: PERRLA, EOMI, conjunctiva normal, no discharge. [] Neck: Normal range of motion, no tenderness, supple, no stridor. [] Cardiovascular:Heart rate regular rhythm, no murmur [] Lungs & Thorax: Bilateral breath sounds clear to auscultation [] Abdomen: Bowel sounds normal, soft, no tenderness, no masses, no pulsatile masses. [] Skin: Warm, dry, no erythema, no rash. [] Back: No tenderness, no CVA tenderness. [] Extremities: Overweight patient, no obvious deformity noted to the left lower extremity, tenderness on palpation behind the knee, slightly Limited range of motion to the left knee. Patient is able to bend and extend the knee under passive range of motion. +2 left pedal pulse. Neurologic: Alert and oriented X 3, normal motor function, normal sensory function, no focal deficits noted. [] Psychologic: Affect normal, judgement normal, mood normal. [] Current Patient Data Vital Signs Vital Signs Date Time Temp Pulse Resp B/P (MAP) Pulse Ox O2 Delivery O2 Flow Rate FiO2 06/18/19 23:10 98.6 98 12 134/67 (89) 97 Room Air 98.6 Lab Values Laboratory Tests Test 06/18/19 23:27 06/18/19 23:30 Urine Opiates Screen Pos (NEG) Urine Methadone Screen Neg (NEG) Urine Barbiturates Neg (NEG) Urine Phencyclidine Screen Neg (NEG) Urine Amphetamine/Methamphetamine Pos (NEG) Urine Benzodiazepines Screen Neg (NEG) Urine Cocaine Screen Pos (NEG) Urine Cannabinoids Screen Pos (NEG) Urine Ethyl Alcohol Neg (NEG) POC Urine HCG, Qualitative Hcg negative (Negative) EKG EKG [] Radiology/Procedures Radiology/Procedures [] Course & Med Decision Making Course & Med Decision Making Pertinent Labs and Imaging studies reviewed. (See chart for details) This is a 29-year-old female patient presenting to the ED today with left leg pain that began after she stepped into uneven surface in a house that this being remodeled. Off note EMS reports patient's house was full of feces, and drugs. Patient's drug screen is positive for cocaine, methamphetamines, marijuana and opiates. X-rays of the left hip with pelvis, left knee, left tib-fib interpreted by Dr. Blakely were negative for any acute findings. Immobilizer provided to the left knee by the ED RN, neurovascular exam is intact. Ice elevation encouraged. Provided orthopedic doctor for follow-up as an outpatient. Dragon Disclaimer Dragon Disclaimer This electronic medical record was generated, in whole or in part, using a voice recognition dictation system. Departure Departure Impression: Primary Impression: Sprain of left lower leg Additional Impression: Drug abuse Disposition: HOME, SELF-CARE Condition: STABLE Referrals: NO PCP (PCP) HOPE MCCALLUM MD follow up in the course of this week Patient Instructions: Drug Abuse, FAQs, Joint Sprain Additional Instructions: You were evaluated in the emergency room for left lower extremity pain, your x- rays of the left hip with pelvis, left knee, left tib-fib were negative for any acute findings. We provided do an immobilizer for the left lower extremity. Wear the immobilizer as needed and tolerated. Your urine drug screen was positive for multiple drugs including cocaine, methamphetamine, opiates, and marijuana. Please consider getting help for drug use. Scripts Methylprednisolone (MEDROL) 4 Mg Tab.ds.pk 1 PKG PO UD, #1 PKG Prov: CLARK OLIVA APRN 06/19/19 Diclofenac Potassium (DICLOFENAC POTASSIUM) 50 Mg Tablet 1 TAB PO BID, #20 TAB 0 Refills Prov: CLARK OLIVA APRN 06/19/19 Problem Qualifiers Primary Impression: Sprain of left lower leg Encounter type: initial encounter Qualified Codes: S83.92XA - Sprain of unspecified site of left knee, initial encounter CLARK OLIVA APRN Jun 18, 2019 23:30
[2019-06-18 23:44] LABS: BARBITURATES NEG (NEG); BENZODIAZEPINES NEG (NEG); CANNABINOIDS POS (NEG); COCAINE POS (NEG); METHADONE NEG (NEG); OPIATES POS (NEG); PHENCYCLIDINE NEG (NEG)
[2019-06-18 23:45] LABS: AMPHETAMINE/METHAMPHETAMINE POS (NEG)
[2019-06-19] MEDS: NAPROXEN 500 MG TABLET PO ONE (00:17)
[2019-06-19] MEDS: HYDROcodone/APAP 5/325MG 1 TAB TABLET PO ONE (00:18)
[2019-06-19] MEDS ORDERED: METH4TAB2 PO (00:26)
[2019-06-19] MEDS ORDERED: DICL50TA2 PO (00:26)
--- NOTE | 2019-06-19 01:43 | RAD ---
AP pelvis with left hip AP lateral x-rays HISTORY: Fall, pain. FINDINGS: No fracture or dislocation of the pelvis and left hip. There is mild spurring of the left acetabulum. Mild spurring of the pubic symphysis. The soft tissues are unremarkable. IMPRESSION: No acute osseous injury of the pelvis and left hip. Left knee x-rays 3 views HISTORY: Fall, pain. FINDINGS: Very mild age advanced spurring at the inferior patella. No fracture or dislocation. The soft tissues are unremarkable. There is a mild oblong which are ossicle anterior of the lower patella may be due to an old soft tissue injury. IMPRESSION: No acute osseous injury of the left knee. Left tibia fibula AP lateral x-rays HISTORY: Fall, pain. FINDINGS: No fracture or dislocation. No lytic or sclerotic bone lesion. The soft tissues are unremarkable. IMPRESSION: No acute osseous injury of the left tibia and fibula. Electronically signed by: Cristian Urbina MD (06/19/2019 1:40 AM) [facility]
== END 2019-06-19 00:33 | disposition home or self-care (01) ==
LOC: ER 23:10
DX: S83.92XA Sprain of unspecified site of left knee, initial encounter (principal); F15.10 Other stimulant abuse, uncomplicated; F14.10 Cocaine abuse, uncomplicated; F12.10 Cannabis abuse, uncomplicated; F11.10 Opioid abuse, uncomplicated; M25.552 Pain in left hip; E66.01 Morbid (severe) obesity due to excess calories; Z68.42 Body mass index [BMI] 45.0-49.9, adult; X50.1XXA Overexertion from prolonged static or awkward postures, initial encounter; Y93.89 Activity, other specified; Y92.89 Other specified places as the place of occurrence of the external cause; Y99.8 Other external cause status
CPT/HCPCS: 29505; 73502; 73562; 73590; 80307; 81025; 99285-25

== ENCOUNTER 2019-09-28 13:34 | Emergency (ER) | payer MEDICAID ==
[~2019-09-28] VITALS: Ht 165.1 cm; Wt 119.0 kg
[~2019-09-28 13:34] MED LIST changes: +DICL50TA2 PO; +METH4TAB2 PO
[2019-09-28 14:43] LABS: BASO # 0.1 x10^3/uL (0.0-0.2); BASO % 1 % (0-3); EOS # 0.1 x10^3/uL (0.0-0.7); EOS % 1 % (0-3); HEMATOCRIT 40.2 % (36.0-47.0); HEMOGLOBIN 12.9 g/dL (12.0-15.5); LYMPH # 2.3 x10^3/uL (1.0-4.8); LYMPH % 27 % (24-48); MEAN CORPUSCULAR HEMOGLOBIN 25 pg (25-35); MEAN CORPUSCULAR HGB CONC 32 g/dL (31-37); MEAN CORPUSCULAR VOLUME 78 fL (79-100); MONO # 0.7 x10^3/uL (0.0-1.1); MONO % 8 % (0-9); NEUT # 5.4 x10^3/uL (1.8-7.7); NEUT % 63 % (31-73); PLATELET COUNT 285 x10^3/uL (140-400); RED BLOOD COUNT 5.18 x10^6/uL (3.50-5.40); RED CELL DISTRIBUTION WIDTH 15.1 % (11.5-14.5); WHITE BLOOD COUNT 8.6 x10^3/uL (4.0-11.0)
[2019-09-28 14:45] LABS: BILIRUBIN,URINE NEGATIVE (NEG); CLARITY,URINE CLEAR; COLOR,URINE YELLOW; NITRITE,URINE NEGATIVE (NEG); PROTEIN,URINE NEGATIVE (NEG-TRACE); UROBILINOGEN,URINE 0.2 mg/dL (0.2 mg/dL)
[2019-09-28 14:52] LABS: CALCIUM 8.2 mg/dL (8.5-10.1); CREATININE 0.9 mg/dL (0.6-1.0); GFR 90.2; POTASSIUM 3.9 mmol/L (3.5-5.1)
[2019-09-28 14:57] LABS: BARBITURATES NEG (NEG); BENZODIAZEPINES POS (NEG); CANNABINOIDS POS (NEG); COCAINE NEG (NEG); METHADONE NEG (NEG); OPIATES NEG (NEG); PHENCYCLIDINE POS (NEG)
[2019-09-28 14:58] LABS: ALBUMIN 3.1 g/dL (3.4-5.0); ALBUMIN/GLOBULIN RATIO 0.8 (1.0-1.7); AMPHETAMINE/METHAMPHETAMINE NEG (NEG); TOTAL BILIRUBIN 0.1 mg/dL (0.2-1.0); TOTAL PROTEIN 6.9 g/dL (6.4-8.2)
[2019-09-28 15:01] LABS: BACTERIA,URINE 0 /HPF (0-FEW); SQUAMOUS EPITHELIAL CELL,UR FEW /LPF; WBC,URINE 0 /HPF (0-4)
[2019-09-28 15:08] VITALS: BP 154/88
[2019-09-28 15:12] LABS: U PREG PATIENT NEGATIVE (NEG)
--- NOTE | 2019-09-28 15:15 | RAD ---
Exam: Chest one view INDICATION: Shortness of breath TECHNIQUE: Frontal view of the chest Comparisons: 05/02/2019 FINDINGS: The cardiomediastinal silhouette and pulmonary vessels are within normal limits. The lung and pleural spaces are clear. IMPRESSION: No acute cardiopulmonary process. Electronically signed by: Xin Schultz MD (09/28/2019 3:11 PM) [id number]
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
== END 2019-09-28 15:22 | disposition left against medical advice (07) ==
LOC: ER 13:34
DX: Z03.818 Encounter for observation for suspected exposure to other biological agents ruled out (principal); F19.10 Other psychoactive substance abuse, uncomplicated; F12.10 Cannabis abuse, uncomplicated; F15.10 Other stimulant abuse, uncomplicated; F14.10 Cocaine abuse, uncomplicated; E66.01 Morbid (severe) obesity due to excess calories; Z68.41 Body mass index [BMI] 40.0-44.9, adult
CPT/HCPCS: 36415; 71045; 80053; 80307; 81001; 81025; 85025; 87635; 99284-25

== ENCOUNTER 2019-10-23 02:55 | Emergency (ER) | payer MEDICAID ==
[~2019-10-23] VITALS: Ht 165.1 cm; Wt 122.3 kg
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
[2019-10-23 03:54] LABS: BASO # 0.1 x10^3/uL (0.0-0.2); BASO % 1 % (0-3); EOS # 0.2 x10^3/uL (0.0-0.7); EOS % 2 % (0-3); HEMOGLOBIN 12.7 g/dL (12.0-15.5); LYMPH % 22 % (24-48); MEAN CORPUSCULAR HEMOGLOBIN 25 pg (25-35); MEAN CORPUSCULAR HGB CONC 32 g/dL (31-37); MEAN CORPUSCULAR VOLUME 77 fL (79-100); MONO # 0.7 x10^3/uL (0.0-1.1); MONO % 5 % (0-9); NEUT # 9.6 x10^3/uL (1.8-7.7); NEUT % 71 % (31-73); PLATELET COUNT 315 x10^3/uL (140-400); RED BLOOD COUNT 5.18 x10^6/uL (3.50-5.40); RED CELL DISTRIBUTION WIDTH 15.4 % (11.5-14.5); WHITE BLOOD COUNT 13.7 x10^3/uL (4.0-11.0)
[2019-10-23 04:01] LABS: CALCIUM 9.1 mg/dL (8.5-10.1); CREATININE 0.9 mg/dL (0.6-1.0); GFR 90.2; POTASSIUM 3.7 mmol/L (3.5-5.1)
[2019-10-23 04:06] LABS: BARBITURATES NEG (NEG); BENZODIAZEPINES NEG (NEG); CANNABINOIDS POS (NEG); COCAINE NEG (NEG); METHADONE NEG (NEG); OPIATES NEG (NEG); PHENCYCLIDINE POS (NEG)
[2019-10-23 04:07] LABS: AMPHETAMINE/METHAMPHETAMINE NEG (NEG)
[2019-10-23 04:08] LABS: ALBUMIN 3.4 g/dL (3.4-5.0)
[2019-10-23 04:09] LABS: DIRECT BILIRUBIN 0.1 mg/dL (0.0-0.2); TOTAL BILIRUBIN 0.3 mg/dL (0.2-1.0)
[2019-10-23 04:12] LABS: BACTERIA,URINE 0 /HPF (0-FEW); BILIRUBIN,URINE NEGATIVE (NEG); CLARITY,URINE CLEAR; COLOR,URINE YELLOW; NITRITE,URINE NEGATIVE (NEG); PH,URINE 6.5 (<5.0-8.0); PROTEIN,URINE NEGATIVE (NEG-TRACE); SQUAMOUS EPITHELIAL CELL,UR MOD /LPF; UROBILINOGEN,URINE 0.2 mg/dL (0.2 mg/dL); WBC,URINE 0 /HPF (0-4)
[2019-10-23 05:55] VITALS: BP 142/70
--- NOTE | 2019-10-23 06:57 | EKG ---
[facility] [address] [place] [address] Test Date: 2019-10-23 Test Time: 03:31:28 Pat Name: MARIYA BAUER Department: Room: Gender: F Service Order Clerk: : 1990 Requested By: LAZARA RG Order Number: [id number] Reading MD: Nahid Coulter Measurements Intervals [place] Rate: 89 P: 50 DC: 164 QRS: 58 QRSD: 74 T: 25 QT: 356 QTc: 434 Interpretive Statements SINUS RHYTHM Electronically Signed On 10-23-2019 7:56:53 CDT by Nahid Coulter
== END 2019-10-23 07:45 | disposition home or self-care (01) ==
LOC: ER 02:55
DX: F19.10 Other psychoactive substance abuse, uncomplicated (principal); F41.9 Anxiety disorder, unspecified; F17.200 Nicotine dependence, unspecified, uncomplicated; E66.01 Morbid (severe) obesity due to excess calories; Z68.42 Body mass index [BMI] 45.0-49.9, adult; Z87.442 Personal history of urinary calculi; Z98.890 Other specified postprocedural states
CPT/HCPCS: 36415; 80048; 80076; 80307; 81001; 81025; 85025; 93005; 99285; G0480

== ENCOUNTER 2019-11-07 18:35 | Emergency (ER) | payer MEDICAID ==
[~2019-11-07] VITALS: Ht 165.1 cm; Wt 122.0 kg
[2019-11-07 18:35] VITALS: BP 150/72
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
[2019-11-07] MEDS ORDERED: HYDROcodone/APAP 5/325MG 1 TAB TABLET PO ONE (19:00)
[2019-11-07] MEDS ORDERED: ONDANSETRON ODT 4 MG TAB.RAPDIS. PO ONE (19:00)
[2019-11-07 19:10] LABS: BILIRUBIN,URINE SMALL (NEG); CLARITY,URINE CLEAR; COLOR,URINE YELLOW; NITRITE,URINE NEGATIVE (NEG); PROTEIN,URINE 100 mg/dL (NEG-TRACE)
[2019-11-07 19:16] LABS: AMPHETAMINE/METHAMPHETAMINE NEG (NEG); BARBITURATES NEG (NEG); BENZODIAZEPINES NEG (NEG); CANNABINOIDS POS (NEG); COCAINE NEG (NEG); METHADONE NEG (NEG); OPIATES NEG (NEG); PHENCYCLIDINE POS (NEG)
[2019-11-07 19:19] LABS: BACTERIA,URINE MANY /HPF (0-FEW)
[2019-11-07 19:20] LABS: SQUAMOUS EPITHELIAL CELL,UR MANY /LPF
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
--- NOTE | 2019-11-07 19:41 | RAD ---
THORACIC SPINE 3V DATE: 11/07/2019 6:47 PM INDICATION: Pain with palpation COMPARISON: None. FINDINGS: The upper thoracic vertebrae are obscured on the lateral view by overlying soft tissue and osseous structures. Bones/Alignment: No evidence of acute compression fracture. No listhesis. Joints: The disc space heights are normal. Miscellaneous: None. IMPRESSION: No evidence of acute compression fracture. Electronically signed by: Geraldo Goyal MD (11/07/2019 7:38 PM) [id number]
== END 2019-11-07 19:42 | disposition left against medical advice (07) ==
LOC: ER 18:35
DX: S09.90XA Unspecified injury of head, initial encounter (principal); R42 Dizziness and giddiness; M54.2 Cervicalgia; M54.6 Pain in thoracic spine; F17.200 Nicotine dependence, unspecified, uncomplicated; E66.01 Morbid (severe) obesity due to excess calories; Z68.41 Body mass index [BMI] 40.0-44.9, adult; Y04.0XXA Assault by unarmed brawl or fight, initial encounter; Y93.89 Activity, other specified; Y92.89 Other specified places as the place of occurrence of the external cause; Y99.8 Other external cause status
CPT/HCPCS: 70450; 72072; 72125; 80307; 81001; 81025; 87086; 99285; Q0162

== ENCOUNTER 2019-11-07 22:36 | Emergency (ER) | payer MEDICAID ==
[~2019-11-07] VITALS: Ht 165.1 cm; Wt 121.0 kg
[2019-11-07 22:49] VITALS: BP 154/103
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
== END 2019-11-07 23:20 | disposition left against medical advice (07) ==
LOC: ER 22:36
DX: R45.6 Violent behavior (principal); F19.10 Other psychoactive substance abuse, uncomplicated; R51 Headache; R42 Dizziness and giddiness; G89.11 Acute pain due to trauma; F41.9 Anxiety disorder, unspecified; F31.9 Bipolar disorder, unspecified; E66.01 Morbid (severe) obesity due to excess calories; Z68.41 Body mass index [BMI] 40.0-44.9, adult; F17.200 Nicotine dependence, unspecified, uncomplicated; F10.20 Alcohol dependence, uncomplicated; Y90.9 Presence of alcohol in blood, level not specified; Y08.89XA Assault by other specified means, initial encounter; Y93.89 Activity, other specified; Y92.89 Other specified places as the place of occurrence of the external cause; Y99.8 Other external cause status
CPT/HCPCS: 99283

== ENCOUNTER 2020-11-16 10:07 | Emergency (ER) | payer MEDICAID ==
[~2020-11-16] VITALS: Ht 160 cm; Wt 100.0 kg
[2020-11-16 10:10] VITALS: BP 141/98
[2020-11-16] MEDS ORDERED: NAPROXEN 500 MG TABLET PO STA (10:19)
[2020-11-16] MEDS ORDERED: NAPR-514 PO (10:25)
[2020-11-16] MEDS ORDERED: AMOX500T PO (10:25)
--- NOTE | 2020-11-16 10:26 | PHYS DOC ---
Past Medical History Past Medical History: Anxiety, Bipolar, Other Additional Past Medical Histor: Gestational DM, morbid obesity, eczema, , GALL STONES Past Surgical History: Other Additional Past Surgical Histo: D&C Smoking Status: Current Every Day Smoker Alcohol Use: Heavy Drug Use: None General Adult EDM: Chief Complaint: DENTAL PROBLEM HPI: HPI: Patient is a 30 year old female with history of bipolar, anxiety, who presents to the ED today complaining of moderate right upper and lower gum dental pain, s ymptoms began last night. Patient is crying out loud, not willing to give us information. Review of Systems: Review of Systems: Constitutional: Denies fever or chills. [] HENT: Reports right upper and lower gum dental pain Musculoskeletal: Denies back pain or joint pain. [] Integument: Denies rash. [] Neurologic: Denies headache, focal weakness or sensory changes. [] Psychiatric: Denies depression or anxiety. [] Heart Score: C/O Chest Pain: N/A Risk Factors: Risk Factors: DM, Current or recent (<one month) smoker, HTN, HLP, family history of CAD, obesity. Risk Scores: Score 0 - 3: 2.5% MACE over next 6 weeks - Discharge Home Score 4 - 6: 20.3% MACE over next 6 weeks - Admit for Clinical Observation Score 7 - 10: 72.7% MACE over next 6 weeks - Early Invasive Strategies Allergies: Allergies: Allergies Coded Allergies Type Severity Reaction Last Updated Verified No Known Allergies Allergy Unknown 09/09/15 Yes Physical Exam: PE: Constitutional: Well developed, well nourished, no acute distress, non-toxic appearance. [] HENT: Normocephalic, atraumatic, bilateral external ears normal, oropharynx moist, no oral exudates, nose normal. [] No obvious dental abscess noted on the right upper or lower gums. Dental caries noted. No gum erythema. Skin: Warm, dry, no erythema, no rash. [] Back: No tenderness, no CVA tenderness. [] Extremities: No tenderness, no cyanosis, no clubbing, ROM intact, no edema. [] Neurologic: Alert and oriented X 3, normal motor function, normal sensory function, no focal deficits noted. [] Psychologic: Affect normal, judgement normal, mood normal. [] EKG: EKG: [] Radiology/Procedures: Radiology/Procedures: [] Course & Med Decision Making: Course & Med Decision Making Pertinent Labs and Imaging studies reviewed. (See chart for details) This is a 30-year-old female patient presenting to the ED today with right upper and lower gum dental pain, symptoms began yesterday. Patient crying out loud not cooperating to give us information. Given amoxicillin and naproxen and discharged to home with the same. Encouraged to follow-up with a dentist Анна Disclaimer: Анна Disclaimer: This electronic medical record was generated, in whole or in part, using a voice recognition dictation system. Departure Departure Impression: Primary Impression: Dentalgia Additional Impression: Dental caries Disposition: HOME / SELF CARE / HOMELESS Condition: STABLE Referrals: ROLA RIVAS (PCP) follow up next week Patient Instructions: Dental Caries, Dental Pain Additional Instructions: You were seen for dental pain, please follow-up with a dentist as soon as possible. Take the prescribed medications as ordered, ensure you complete your antibiotics Scripts Naproxen (NAPROXEN) 500 Mg Tablet 1 TAB PO BID for pain, #20 TAB 0 Refills Prov: CLARK OLIVA APRN 11/16/20 Amoxicillin (AMOXICILLIN) 500 Mg Tablet 1 TAB PO BID, #20 TAB Prov: CLARK OLIVA APRN 11/16/20 CLARK OLIVA APRN Nov 16, 2020 10:26
[2020-11-16] MEDS ORDERED: AMOXICILLIN 250 MG CAPSULE. PO ONE (10:30)
== END 2020-11-16 10:40 | disposition home or self-care (01) ==
LOC: ER 10:07
DX: K02.9 Dental caries, unspecified (principal); F41.9 Anxiety disorder, unspecified; F31.9 Bipolar disorder, unspecified; F17.200 Nicotine dependence, unspecified, uncomplicated; E66.01 Morbid (severe) obesity due to excess calories; F10.20 Alcohol dependence, uncomplicated; Z68.39 Body mass index [BMI] 39.0-39.9, adult; Y90.9 Presence of alcohol in blood, level not specified
CPT/HCPCS: 99283

== ENCOUNTER 2021-03-26 23:32 | Emergency (ER) | payer MEDICAID ==
[~2021-03-26] VITALS: Ht 165.1 cm; Wt 113.0 kg
[~2021-03-26 23:32] MED LIST changes: +AMOX500T PO; +NAPR-514 PO
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
[2021-03-27] MEDS ORDERED: IV NORMAL SALINE 1000ML BAG 1,000 ML IV ONE (01:00)
[2021-03-27 02:28] LABS: BILIRUBIN,URINE NEGATIVE (NEG); CLARITY,URINE CLEAR; COLOR,URINE YELLOW; NITRITE,URINE NEGATIVE (NEG); PROTEIN,URINE NEGATIVE (NEG-TRACE); UROBILINOGEN,URINE 0.2 mg/dL (0.2 mg/dL)
[2021-03-27 02:35] LABS: BARBITURATES NEG (NEG); BENZODIAZEPINES NEG (NEG); CANNABINOIDS NEG (NEG); COCAINE NEG (NEG); METHADONE NEG (NEG); OPIATES NEG (NEG); PHENCYCLIDINE POS (NEG)
[2021-03-27 02:42] LABS: BACTERIA,URINE FEW /HPF (0-FEW); RBC,URINE OCC /HPF (0-2); WBC,URINE OCC /HPF (0-4)
[2021-03-27 02:44] LABS: AMPHETAMINE/METHAMPHETAMINE NEG (NEG)
[2021-03-27 02:46] LABS: U PREG PATIENT NEGATIVE (NEG)
[2021-03-27 03:30] VITALS: BP 120/65
== END 2021-03-27 04:04 | disposition home or self-care (01) ==
LOC: ER 23:32
DX: F16.129 Hallucinogen abuse with intoxication, unspecified (principal); F10.20 Alcohol dependence, uncomplicated; Y90.9 Presence of alcohol in blood, level not specified; F31.9 Bipolar disorder, unspecified; F17.200 Nicotine dependence, unspecified, uncomplicated
CPT/HCPCS: 80307; 81001; 81025; 96361; 96374; 96376; 99284; J2060; J7030; 99283-25

== ENCOUNTER 2021-04-09 14:09 | Emergency (ER) | payer MEDICAID ==
[~2021-04-09] VITALS: Ht 162.6 cm; Wt 135.0 kg
[~2021-04-09 14:09] MED LIST changes: +CYCL10TA19 PO; -CYCL10TA2 PO
[2021-04-09 14:53] VITALS: BP 146/96
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
== END 2021-04-09 15:45 | disposition left against medical advice (07) ==
LOC: ER 14:09
DX: S69.91XA Unspecified injury of right wrist, hand and finger(s), initial encounter (principal); S09.93XA Unspecified injury of face, initial encounter; F31.9 Bipolar disorder, unspecified; F41.9 Anxiety disorder, unspecified; Z72.0 Tobacco use; X50.9XXA Other and unspecified overexertion or strenuous movements or postures, initial encounter; Y93.89 Activity, other specified; Y92.89 Other specified places as the place of occurrence of the external cause; Y99.8 Other external cause status
CPT/HCPCS: 70450; 70486; 73110; 99284-25; 99285-25

== ENCOUNTER 2021-04-29 06:52 | Emergency (ER) | payer MEDICAID ==
--- NOTE | 2021-04-29 06:58 | PHYS DOC ---
Past Medical History Past Medical History: Anxiety, Bipolar, Other Additional Past Medical Histor: Gestational DM, morbid obesity, eczema, , GALL STONES Past Surgical History: No Surgical History Additional Past Surgical Histo: D&C Smoking Status: Light Tobacco Smoker Alcohol Use: Occasionally Drug Use: None General Adult HPI: HPI: This patient elected to leave AGAINST MEDICAL ADVICE, thus I did not examine or see her. Review of Systems: Review of Systems: Patient left AMA. Heart Score: C/O Chest Pain: N/A Risk Factors: Risk Factors: DM, Current or recent (<one month) smoker, HTN, HLP, family history of CAD, obesity. Risk Scores: Score 0 - 3: 2.5% MACE over next 6 weeks - Discharge Home Score 4 - 6: 20.3% MACE over next 6 weeks - Admit for Clinical Observation Score 7 - 10: 72.7% MACE over next 6 weeks - Early Invasive Strategies Allergies: Allergies: Allergies Coded Allergies Type Severity Reaction Last Updated Verified No Known Drug Allergies 11/16/20 No Physical Exam: PE: The patient left AMA. EKG: EKG: [] Radiology/Procedures: Radiology/Procedures: [] Course & Med Decision Making: Course & Med Decision Making Pertinent Labs and Imaging studies reviewed. (See chart for details) [] Dragon Disclaimer: Анна Disclaimer: This electronic medical record was generated, in whole or in part, using a voice recognition dictation system. Departure Departure Referrals: NO PCP (PCP) THEODORA TAMAYO DO Apr 29, 2021 06:58
== END 2021-04-29 07:11 | disposition left against medical advice (07) ==
LOC: ER 06:52
DX: F41.9 Anxiety disorder, unspecified (principal); F31.9 Bipolar disorder, unspecified; Z72.0 Tobacco use; Z53.21 Procedure and treatment not carried out due to patient leaving prior to being seen by health care provider

== ENCOUNTER 2021-05-18 00:24 | Emergency (ER) | payer MEDICAID ==
[~2021-05-18] VITALS: Ht 160 cm; Wt 136.0 kg
[2021-05-18 00:49] VITALS: BP 122/78
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
== END 2021-05-18 01:28 | disposition home or self-care (01) ==
LOC: ER 00:24
DX: O26.891 Other specified pregnancy related conditions, first trimester (principal); R10.30 Lower abdominal pain, unspecified; M54.50 Low back pain, unspecified; Z91.19 Patient's noncompliance with other medical treatment and regimen; F31.9 Bipolar disorder, unspecified; Z72.0 Tobacco use; Z3A.01 Less than 8 weeks gestation of pregnancy
CPT/HCPCS: 99283

== ENCOUNTER 2021-07-05 20:24 | Emergency (ER) | payer MEDICAID ==
[~2021-07-05] VITALS: Ht 162.6 cm; Wt 150.0 kg
[2021-07-05 20:33] VITALS: BP 148/89
[2021-07-05] MEDS ORDERED: ACETAMINOPHEN 500 MG TABLET PO ONE (21:15)
[2021-07-05 21:20] LABS: PREG TEST PT QUAL NEGATIVE (NEG)
--- NOTE | 2021-07-05 22:12 | RAD ---
Exam: CT head INDICATION: Fall, right-sided head pain TECHNIQUE: Sequential axial images through the head were obtained without the administration of IV co ntrast. Exposure: One or more of the following in the visualized dose reduction techniques were utilized for this examination: 1. Automated exposure control 2. Adjustment of the MA and/or KV according to patient size 3. Use of iterative of reconstructive technique Comparisons: None FINDINGS: No focal parenchymal lesion or hemorrhage is identified. There is no midline shift or sulcal effaceme nt. No acute vascular territory infarction is identified. Mcfarland-white distinction is preserved. The ventricular system is within normal limits without compression hydrocephalus. The basal cisterns are well maintained. The visualized portions of the paranasal sinuses and mastoid air cells are well-pneumatized. No acute fractures. IMPRESSION: No acute intracranial abnormality. Electronically signed by: Xin Schultz MD (07/05/2021 10:10 PM) [facility]
--- NOTE | 2021-07-05 22:29 | PHYS DOC ---
Past Medical History Past Medical History: Anxiety, Bipolar, Other Additional Past Medical Histor: Gestational DM, morbid obesity, eczema, , GALL STONES Past Surgical History: No Surgical History Additional Past Surgical Histo: D&C Smoking Status: Current Every Day Smoker Alcohol Use: Occasionally Drug Use: None Adult General Chief Complaint Chief Complaint: ABDOMINAL PAIN HPI HPI The patient is a morbidly obese 31-year-old female who is currently undomiciled and residing in her car. She called police for a ride to a homeless long-term as it is cold outside. Per their protocol, when they made contact with her they did a warrant check and found that she had several warrants. Initially the patient's only request was for a ride to a long-term but once she learned that she would be arrested she began verbalizing a number of medical complaints. First, she notes that she fell and struck the right side of her head today and is reporting a headache with right-sided head pain. Second, patient notes that she has had some mild vaginal bleeding over the past couple of days and has been having low midline crampy abdominal discomfort in association with it. She states the symptoms are similar to those she typically has with her periods but she reports a positive home test yesterday. She would like that to be checked into further. Patient is alert, oriented x4, pleasantly and appropriately interactive and in absolutely no acute distress, ambulatory into the emergency department with a narrow, steady, non-ataxic, nonantalgic gait. Vital signs are appropriate here and the patient is in absolutely no acute distress. Review of Systems Review of Systems A 12 point review of systems was completed and was negative except for noted in HPI above. Current Medications Current Medications Current Medications Medications (Trade) Dose Ordered Sig/Roc Start Time Stop Time Status Last Admin Dose Admin Acetaminophen (Tylenol) 1,000 mg 1X ONCE 07/05/21 21:15 07/05/21 21:16 DC 07/05/21 21:24 1,000 MG Allergies Allergies Allergies Coded Allergies Type Severity Reaction Last Updated Verified No Known Drug Allergies 11/16/20 No Physical Exam Physical Exam 31-year-old female appearing nontoxic and in no acute distress. Head is normocephalic and atraumatic. Neck is supple and nontender. Oropharynx is moist. Lungs are clear to auscultation at all stations. There is a normal S1 and S2 without rubs or gallops and capillary refill is appropriate, less than 2 seconds globally. Abdomen is soft, nontender and nondistended. Absolutely no abdominal discomfort is elicitable to palpation at all. Skin is warm and dry without cyanosis, clubbing or edema. Psychiatrically, the patient demonstrates appropriate mood and affect and is alert. Neurologically, cranial nerves II through XII are intact and there are no lateralizing deficits seen. Speech is normal. Language normal. Coordination is normal. There is no dysmetria with [id number] or [id number] bilaterally. Strength is 5 out of 5 at all joints of bilateral upper and lower extremities. Sensation is intact to light touch in bilateral upper and lower extremities. Patient ambulates with a narrow, steady, non-ataxic gait here in the emergency department and is alert and oriented x4. Current Patient Data Lab Values Laboratory Tests Test 07/05/21 21:00 Serum Test, Qualitative Negative (NEG) EKG EKG [] Radiology/Procedures Radiology/Procedures Exam: CT head INDICATION: Fall, right-sided head pain TECHNIQUE: Sequential axial images through the head were obtained without the administration of IV contrast. Exposure: One or more of the following in the visualized dose reduction techniques were utilized for this examination: 1. Automated exposure control 2. Adjustment of the MA and/or KV according to patient size 3. Use of iterative of reconstructive technique Comparisons: None FINDINGS: No focal parenchymal lesion or hemorrhage is identified. There is no midline shift or sulcal effacement. No acute vascular territory infarction is identified. Mcfarland-white distinction is preserved. The ventricular system is within normal limits without compression hyd rocephalus. The basal cisterns are well maintained. The visualized portions of the paranasal sinuses and mastoid air cells are well- pneumatized. No acute fractures. IMPRESSION: No acute intracranial abnormality. Electronically signed by: Jael Cid MD (07/05/2021 10:10 PM) [facility] DICTATED and SIGNED BY: JAEL CID MD DATE: 07/05/[id number] 0 [] Course & Med Decision Making Course & Med Decision Making Patient feeling better on reassessment. Reports her headache is resolved. Head CT negative for evidence of any acute abnormality. test negative. Patient has declined to provide a urine sample for us to further investigate her low midline abdominal/suprapubic/pelvic pain. Overall scenario is consistent with menstruation however, so will not force the issue. Patient is medically cleared for discharge to police custody. She understands that if she feels worse instead of better or develops other new symptoms of concern that she should return to the emergency department right away for reevaluation. All questions are answered. Dragon Disclaimer Dragon Disclaimer This electronic medical record was generated, in whole or in part, using a voice recognition dictation system. Departure Departure Impression: Primary Impression: Headache Additional Impression: Menstruation Disposition: 01 HOME / SELF CARE / HOMELESS Condition: RELEASED IN CUSTODY Patient Instructions: Abdominal Pain Additional Instructions: Follow-up with your primary care doctor in the office in the next 2 to 4 days for a reevaluation of your symptoms and a discussion of next best steps in care. Drink plenty of fluids and get plenty of rest. Return to the emergency department right away for worsening symptoms of any kind or with any other new symptoms of concern. Problem Qualifiers Primary Impression: Headache Headache type: unspecified Headache chronicity pattern: acute headache Intractability: not intractable Qualified Codes: R51.9 - Headache, unspecified UMER DEAL MD Jul 05, 2021 22:29
== END 2021-07-05 22:40 | disposition home or self-care (01) ==
LOC: ER 20:24 → EEVIPCON 20:24 → ER 22:40
DX: R51.9 Headache, unspecified (principal); N92.0 Excessive and frequent menstruation with regular cycle; E66.01 Morbid (severe) obesity due to excess calories; F17.200 Nicotine dependence, unspecified, uncomplicated; Z68.43 Body mass index [BMI] 50.0-59.9, adult; Z59.00 Homelessness unspecified; W18.09XA Striking against other object with subsequent fall, initial encounter; Y93.89 Activity, other specified; Y92.89 Other specified places as the place of occurrence of the external cause; Y99.8 Other external cause status
CPT/HCPCS: 70450; 84703; 99284